=== PATIENT | female | born 1955 | race Caucasian/White ===

== ENCOUNTER → 2016-11-01 | Outpatient (CLI) | payer OTHER ==
--- NOTE | 2016-11-01 16:03 | MA ---
Screening Digital Mammogram Clinical Indications: Routine screening. Technique: Standard cephalocaudal and mediolateral oblique projections are obtained. This examinati on is processed by the [employer] computer aided detection system. Comparison: August 2015, 2013, 2012 and May 2011 Breast density: B; There are scattered fibroglandular densities. Findings: CAD was reviewed. Developing density upper left breast seen only on the oblique lateral vie w. If real this is likely in the outer left breast on the CC view , where dense breast parenchyma is relatively stable. The remainder the left and right breast are stable. Impression: Developing density upper left breast. BI-RADS 0: Needs additional imaging evaluation, upper left breast. Recommendation: Spot compression view and true-lateral mammogram views. If persistent, localize in t he orthagonal plane mammographically, and then proceed to ultrasound, for further characterization an d localization purposes. Please fax an order for the left breast diagnostic mammogram and ultrasound to [phone]. [facility] will send a result letter to the patient. Negative mammography should not preclude additional workup of a clinically suspicious finding. The patient's information is entered into a reminder system with a target due date for her next mammo gram.
== END ==
LOC: BMCIMAGING 15:04
DX: Z12.31 Encounter for screening mammogram for malignant neoplasm of breast (principal)
CPT/HCPCS: G0202

== ENCOUNTER → 2016-11-22 | Outpatient (CLI) | payer OTHER ==
--- NOTE | 2016-11-22 14:35 | MA ---
Diagnostic Digital Mammogram Left Breast With iCAD Analysis Reason for examination: Evaluate possible developing asymmetry in the upper left breast noted on the oblique view from the screening study of November 01, 2016. Technique: Oblique and craniocaudal spot compression views were obtained. Also, a true lateral was pe rformed. The examination was processed by the [employer] computer-aided detection system. Findings: The area of glandular asymmetry is significantly less pronounced on the diagnostic assessme nt, but does persist. No suspicious microcalcifications are identified.. Impression: Mild glandular asymmetry requires further evaluation. BI-RADS 0 Recommendation: Targeted left breast ultrasound which will be subsequently performed today. A verbal report was given to the patient. [facility] with send a result letter.
--- NOTE | 2016-11-22 15:13 | US ---
Left Breast Ultrasound History: Evaluate asymmetry upper outer left breast noted on diagnostic mammography performed adrien wick. Technique: Longitudinal and transverse images were obtained utilizing a 15-MHz transducer. Findings: No palpable abnormality is identified. Sonographic interrogation of the upper left breast demonstrates scattered fibroglandular elements. No solid or cystic mass is seen. Impression: Benign findings when considering mammographic and sonographic assessment, BI-RADS 2.. Recommendation: Resume routine mammographic screening in one year as long as physical examination is negative.. A verbal report was given to the patient. [facility] will send a result letter to the patient.
== END ==
LOC: FIMAGING 13:14
PROVIDERS: ATTEND Internal Medicine
DX: R92.8 Other abnormal and inconclusive findings on diagnostic imaging of breast (principal)
CPT/HCPCS: G0206

== ENCOUNTER → 2018-02-13 | Outpatient (CLI) | payer OTHER | LOC: BMCIMAGING 14:28 | PROVIDERS: ATTEND Obstetrics & Gynecology | DX: Z12.31 Encounter for screening mammogram for malignant neoplasm of breast (principal); Z13.820 Encounter for screening for osteoporosis; M85.89 Other specified disorders of bone density and structure, multiple sites; Z78.0 Asymptomatic menopausal state; Z82.62 Family history of osteoporosis ==

== ENCOUNTER → 2019-03-11 | Outpatient (CLI) | payer OTHER | LOC: BMCIMAGING 08:27 | PROVIDERS: ATTEND Obstetrics & Gynecology | DX: Z12.31 Encounter for screening mammogram for malignant neoplasm of breast (principal) ==